=== PATIENT | male | born 1955 | race Caucasian/White ===

== ENCOUNTER 2017-03-29 11:07 | Inpatient (IN) | payer OTHER ==
[~2017-03-29] VITALS: Ht 188 cm; Wt 99.4 kg
--- NOTE | 2017-03-29 12:07 | NUR ---
TO ROOM 11 FOR EVAL.
--- NOTE | 2017-03-29 12:07 | NUR ---
SEEN BY DR. JOES, PT HERE FOR PICC LINE FOR DX OSTEOMYELITIS OF TOE.
--- NOTE | 2017-03-29 12:11 | NUR ---
PT BIB SELF C/C RT TOE INFECTION STS X 1 MONTH STS HAS HAD SEVERAL F/U APPT INCLUDING MRI DR JOSE AT BEDSIDE TO DEBBIAL
--- NOTE | 2017-03-29 12:16 | NUR ---
DR RAJAN AT BEDSIDE TO JEMMA
--- NOTE | 2017-03-29 12:56 | NUR ---
SUSPENDER CUTTER AT BEDSIDE FOR BLOOD DRAW
[2017-03-29 13:00] LABS: BASOPHIL % 0.5 % (0-2); PLATELET COUNT 292 x10^3mcL (130-400); RED CELL DISTRIBUTION WIDTH 14.1 % (11.5-14.5)
--- NOTE | 2017-03-29 13:05 | NUR ---
XRAY AT BEDSIDE
--- NOTE | 2017-03-29 13:19 | NUR ---
PLEASE ENTER FULL NAMES OF RADIOLOGY SERVICES MANAGER/RN Patient data collected by (RADIOLOGY SERVICES MANAGER):BELLO MOON Assessment reviewed and completed by (RN):MARTIN BOUDREAUX
[2017-03-29 13:24] LABS: CALCIUM 8.9 mg/dL (8.5-10.1); CARBON DIOXIDE 30.2 mmol/L (21-32); CHLORIDE SERUM 106 mmol/L (98-107); CREATININE SERUM 1.2 mg/dL (0.7-1.3); GFR1 > 60 mL/min; GLUCOSE SERUM 88 mg/dL (74-106); POTASSIUM SERUM 4.3 mmol/L (3.5-5.1); SODIUM SERUM 142 mmol/L (136-145)
[2017-03-29 13:28] LABS: ALBUMIN 3.8 g/dL (3.4-5.0); ALKALINE PHOSPHATASE 60 U/L (46-116); ALT/SGPT 32 U/L (16-63); AST/SGOT 17 U/L (15-37); BILIRUBIN TOTAL 0.8 mg/dL (0.20-1.00); TOTAL PROTEIN, SERUM 6.9 g/dL (6.4-8.2)
--- NOTE | 2017-03-29 13:49 | NUR ---
PT ADMIT TO TELE ROOM 210B GAVE REPORT TO BRITTANY
[2017-03-29 14:42] VITALS: BP 127/79
--- NOTE | 2017-03-29 14:50 | NUR ---
RECEIVED PATIENT FROM ED VIA GUERNEY, PATIENT ALERT AND ORIENTED, TELE # 22 SR, IV ACCESS TO LAC WNL, NO C/O PAIN AT THIS TIME, ORIENTED PATIENT TO ROOM AND SURROUNDINGS, BED IN LOW POSITION, BED RAILS UP X 2, CALL LIGHT WITHIN REACH, WILL ENDORSE CARE TO PRIMARY NURSE BRITTANY BURR
--- NOTE | 2017-03-29 15:00 | NUR ---
PATIENT IS CURRENTLY RESTING IN BED. VITAL SIGNS STABLE. NO SIGNS OF ACUTE DISTRESS ARE PRESENT. ALL SAFETY MEASURES ARE IN PLACE. WILL CONTINUE TO MONITOR.
[2017-03-29 15:07] LABS: CHOLESTEROL/HDL RATIO 3.4; MAGNESIUM 1.7 mg/dL (1.8-2.4); PHOSPHOROUS 4.2 mg/dL (2.5-4.9)
[2017-03-29 15:10] LABS: T3 TOTAL 0.92 ng/mL
[2017-03-29 15:14] LABS: FREE T4 1.09 ng/dL (0.76-1.46); FREE THYROXINE INDEX 2.8 ug/dL (1.4-4.5); T4(THYROXINE) 7.3 ug/dL (4.7-13.3)
--- NOTE | 2017-03-29 17:00 | NUR ---
DR WOODARD DISCUSSED WITH THE PATIENT REGARDING RISKS AND BENEFITS FOR AMPUTATION OF RIGHT SECOND TOE. ALL PATIENT QUESTIONS WERE ANSWERED AT THIS TIME. PATIENT SIGNED THE SURGERY CONSENT FORM.
--- NOTE | 2017-03-29 19:16 | NUR ---
REPORT GIVEN TO [facility] NURSE. AT THIS TIME THE PATIENT IS SLEEPING IN BED. RESPIRATIONS ARE EVEN AND UNLABORED. PATIENT IS LIGHTLY SNORING. NO SIGNS OF ACUTE DISTRESS ARE PRESENT. IV IS INFUSING AT 150ML/HR. ALL SAFETY PRECAUTIONS IN PLACE.
--- NOTE | 2017-03-29 19:25 | NUR ---
RECEIVED PT IN BED RESTING QUIETLY. HE IS ALERT,ORIENTED X4. NO SOB ON RA. W/ DRESSING TO RT FOOT INTACT. PT DENIED HAVING PAIN. W/ IVF NS AT 150 CC/HR VIA LTAC. CALL LIGHT W/IN REACH.
[2017-03-29 21:06] VITALS: BP 138/81
[2017-03-29] MEDS ORDERED: TAMSULOSIN HYD0.4 M1 PO (21:18)
--- NOTE | 2017-03-30 05:44 | NUR ---
PT SLEPT THROUGH THE NIGHT. HE HAD NO C/O PAIN. ON NPO STATUS FOR SX THIS AM. CHLORHEXIDINE PRE-OP WASH DONE. IVF NS AT 150 CC/HR INFUSING VIA LTAC.
[2017-03-30 06:00] VITALS: BP 126/72
[2017-03-30 06:36] LABS: BASOPHIL % 0.5 % (0-2); PLATELET COUNT 278 x10^3mcL (130-400); RED CELL DISTRIBUTION WIDTH 14.1 % (11.5-14.5)
--- NOTE | 2017-03-30 06:40 | NUR ---
QUICK SKETCH ARTIST AT BEDSIDE AND TALKING TO PT.
[2017-03-30 06:50] LABS: CALCIUM 8.7 mg/dL (8.5-10.1); CARBON DIOXIDE 30.2 mmol/L (21-32); CHLORIDE SERUM 106 mmol/L (98-107); CREATININE SERUM 1.1 mg/dL (0.7-1.3); GFR1 > 60 mL/min; GLUCOSE SERUM 113 mg/dL (74-106); POTASSIUM SERUM 4.2 mmol/L (3.5-5.1); SODIUM SERUM 141 mmol/L (136-145)
--- NOTE | 2017-03-30 06:50 | NUR ---
PT TAKEN DOWN TO OR VIA GUERNEY.
--- NOTE | 2017-03-30 07:01 | NUR ---
REPORT GIVEN TO OR NURSE OTERO.
[2017-03-30 07:02] LABS: microscopic required? NO
[2017-03-30 08:11] LABS: urine erythrocyte NEGATIVE (NEGATIVE)
[2017-03-30 09:40] VITALS: BP 138/78
--- NOTE | 2017-03-30 09:40 | NUR ---
RECEIVED THE PATIENT FROM RECOVERY ROOM S/P RIGHT 2ND TOE PARTIAL AMPUTATION. THE PATIENT AWAKE AND ORIENTED TO PERSON, PLACE AND TIME. DENIED ANY SHORTNESS OF BREATH, PAIN OR NAUSEA/VOMITING. RIGHT 2ND TOE AND FOOT NOTED WITH DRESSING INTACT. POST OP BOOT IN PLACE. RLE WAS ELEVATED ON A PILLOW. PULSES PALPABLE. TELE # 22 READS SINUS KAVITAS. RECONNECTED THE IV SITE TO THE LINE. VS CHECKED. CALL LIGHT WITHIN REACH. SIDE RAILS UP X3. ASSESSMENT WAS IMPLEMENTED. THE WAS AT BEDSIDE.
[2017-03-30] MEDS ORDERED: LEVAQUIN750 MG PO (11:51)
[2017-03-30] MEDS ORDERED: COLACE100 MG PO (11:52)
[2017-03-30] MEDS ORDERED: NOR10T PO (11:53)
[2017-03-30] MEDS ORDERED: ACIDOPHILUS LA1 EACH PO ×2 (11:54→14:13)
[2017-03-30 12:14] VITALS: BP 138/78
[2017-03-30] MEDS ORDERED: BACTRIM DS1 TAB PO (13:11)
[2017-03-30 13:56] VITALS: BP 114/69
--- NOTE | 2017-03-30 14:30 | NUR ---
THE PATIENT VOIDED S/P RIGHT 2ND TOE PARTIAL AMPUTATION. THE PATIENT TOLERATED WITH CCHO DIET (40% OF THE LUNCH TRAY AND 1 SANDWICH AND 1 DIET SODA); DENIED ANY NAUSEA/VOMITING. DISCHARGE INSTRUCTION AND PRESCRIPTION WERE EXPLAINED THOROUGHLY AND HANDED TO THE PATIENT. ALL CONCERNS WERE ADDRESSED AND THE PATIENT VERBALIZED UNDERSTANDING. H/L WAS REMOVED WITH CATH INTACT. TELE AND ID BANDS WERE REMOVED. THE NEW DRESSING TO RIGHT 2ND TOE AND FOOT INTACT. PER DR. POST-RESIDENT, THE DRESSING SHOULD NOT BE REMOVED TODAY. INSTRUCTED THE PATIENT TO KEEP THE DRESSING CLEAN AND INTACT UNTIL SEEING THE DOCTORS FOR FURTHER ADVICE AND EVALUATION.
--- NOTE | 2017-03-30 14:53 | NUR ---
THE PATIENT WAS TAKEN TO THE DISCHARGE OFFICE VIA WHEELCHAIR IN STABLE CONDITION. THE PATIENT WAS WEARING POST OP SHOE ON HIS RIGHT FOOT. ALL BELONGINS WERE SENT HOME UPON DISCHARGE.
== END 2017-03-30 14:53 | disposition home or self-care (01) | DRG 41 ==
LOC: ED 11:07 → DU 13:05
PROVIDERS: Emergency Medicine; Podiatrist; ADMIT Family Medicine
PROC: 0Y6R0Z1 Detachment at Right 2nd Toe, High, Open Approach (ICD-10-PCS; principal; 2017-03-30 07:30)
DX: E11.42 Type 2 diabetes mellitus with diabetic polyneuropathy (principal); M86.171 Other acute osteomyelitis, right ankle and foot; D68.51 Activated protein C resistance; E11.65 Type 2 diabetes mellitus with hyperglycemia; E11.69 Type 2 diabetes mellitus with other specified complication; E83.42 Hypomagnesemia; B35.1 Tinea unguium; Z79.84 Long term (current) use of oral hypoglycemic drugs; Z68.28 Body mass index [BMI] 28.0-28.9, adult; Z98.1 Arthrodesis status
CPT/HCPCS: 83880; 84439; J1956; J2704; J3010; J3370; J3490; J7030; Q0092

== ENCOUNTER 2018-11-19 16:20 | Inpatient (IN) | payer OTHER ==
[~2018-11-19] VITALS: Ht 188 cm; Wt 99.8 kg
[~2018-11-19 16:20] MED LIST: ACIDOPHILUS LA1 EACH PO; BACTRIM DS1 TAB PO; COLACE100 MG PO; LEVAQUIN750 MG PO; NOR10T PO; TAMSULOSIN HYD0.4 M1 PO
[2018-11-19] MEDS ORDERED: LIPITOR80 MG PO (17:39)
[2018-11-19] MEDS ORDERED: METFORMIN HCL1000 MG PO (17:39)
[2018-11-19] MEDS ORDERED: ASPIRIN ADULT L81 M3 PO (17:39)
[2018-11-19 18:36] LABS: BASOPHIL % 0.1 % (0-2); PLATELET COUNT 214 x10^3mcL (130-400); RED CELL DISTRIBUTION WIDTH 13.7 % (11.5-14.5)
[2018-11-19 18:45] LABS: CALCIUM 9.1 mg/dL (8.5-10.1); CARBON DIOXIDE 26.2 mmol/L (21-32); CHLORIDE SERUM 103 mmol/L (98-107); CREATININE SERUM 1.2 mg/dL (0.7-1.3); GFR1 > 60 mL/min; GLUCOSE SERUM 130 mg/dL (74-106); POTASSIUM SERUM 4.2 mmol/L (3.5-5.1); SODIUM SERUM 141 mmol/L (136-145)
[2018-11-19 18:50] LABS: ALBUMIN 4.1 g/dL (3.4-5.0); ALKALINE PHOSPHATASE 65 U/L (46-116); ALT/SGPT 37 U/L (16-63); AST/SGOT 20 U/L (15-37); BILIRUBIN TOTAL 1.6 mg/dL (0.20-1.00); TOTAL PROTEIN, SERUM 7.9 g/dL (6.4-8.2)
[2018-11-19 18:55] LABS: CHOLESTEROL/HDL RATIO 2.9
[2018-11-19 21:41] LABS: MAGNESIUM 1.8 mg/dL (1.8-2.4); PHOSPHOROUS 3.4 mg/dL (2.5-4.9)
[2018-11-19 21:47] LABS: T3 TOTAL 0.92 ng/mL
[2018-11-19 21:51] LABS: FREE T4 1.1 ng/dL (0.76-1.46); FREE THYROXINE INDEX 2.1 ug/dL (1.4-4.5)
[2018-11-19 22:00] VITALS: BP 145/77
[2018-11-19 22:06] VITALS: Ht 188 cm; Wt 99.8 kg
[2018-11-20 06:09] VITALS: BP 116/69
[2018-11-20 06:22] LABS: BASOPHIL % 0.3 % (0-2); PLATELET COUNT 229 x10^3mcL (130-400); RED CELL DISTRIBUTION WIDTH 14.1 % (11.5-14.5)
[2018-11-20 06:48] LABS: CALCIUM 8.9 mg/dL (8.5-10.1); CARBON DIOXIDE 27.3 mmol/L (21-32); CHLORIDE SERUM 105 mmol/L (98-107); CREATININE SERUM 1.2 mg/dL (0.7-1.3); GFR1 > 60 mL/min; GLUCOSE SERUM 137 mg/dL (74-106); POTASSIUM SERUM 4.3 mmol/L (3.5-5.1); SODIUM SERUM 143 mmol/L (136-145)
[2018-11-20 08:46] VITALS: BP 113/78
[2018-11-20 11:50] VITALS: BP 118/72
[2018-11-20 16:59] VITALS: BP 113/74
[2018-11-20 20:37] VITALS: BP 111/65
[2018-11-21 05:37] VITALS: BP 111/61
[2018-11-21 06:26] LABS: BASOPHIL % 0.3 % (0-2); PLATELET COUNT 250 x10^3mcL (130-400); RED CELL DISTRIBUTION WIDTH 13.6 % (11.5-14.5)
[2018-11-21 06:52] LABS: CALCIUM 9.2 mg/dL (8.5-10.1); CARBON DIOXIDE 27.3 mmol/L (21-32); CREATININE SERUM 1.3 mg/dL (0.7-1.3); POTASSIUM SERUM 4.7 mmol/L (3.5-5.1)
[2018-11-21 10:09] VITALS: BP 110/64
[2018-11-21 16:00] VITALS: BP 96/59
[2018-11-21 21:32] VITALS: BP 121/77
[2018-11-22 05:44] VITALS: BP 108/63
[2018-11-22 06:14] LABS: BASOPHIL % 0.7 % (0-2); PLATELET COUNT 283 x10^3mcL (130-400); RED CELL DISTRIBUTION WIDTH 14.3 % (11.5-14.5)
[2018-11-22 06:29] LABS: CARBON DIOXIDE 26.7 mmol/L (21-32); CHLORIDE SERUM 103 mmol/L (98-107); CREATININE SERUM 1.1 mg/dL (0.7-1.3); GFR1 > 60 mL/min; GLUCOSE SERUM 115 mg/dL (74-106); POTASSIUM SERUM 4.1 mmol/L (3.5-5.1); SODIUM SERUM 140 mmol/L (136-145)
[2018-11-22 10:00] VITALS: BP 114/67
[2018-11-22 17:26] VITALS: BP 120/95
[2018-11-22 20:43] VITALS: BP 127/83
[2018-11-23 05:42] VITALS: BP 137/52
[2018-11-23 07:02] VITALS: BP 116/71
[2018-11-23 07:53] LABS: BASOPHIL % 0.6 % (0-2); PLATELET COUNT 339 x10^3mcL (130-400); RED CELL DISTRIBUTION WIDTH 12.9 % (11.5-14.5)
[2018-11-23 08:30] LABS: CALCIUM 9.5 mg/dL (8.5-10.1); CARBON DIOXIDE 29.4 mmol/L (21-32); CREATININE SERUM 1.3 mg/dL (0.7-1.3); POTASSIUM SERUM 4.7 mmol/L (3.5-5.1)
[2018-11-23] MEDS ORDERED: KEFLEX500 M1 PO (08:49)
[2018-11-23 09:02] VITALS: BP 116/71
== END 2018-11-23 11:40 | disposition home or self-care (01) | DRG 617 ==
LOC: ED 16:20 → MU 20:16
PROVIDERS: Emergency Medicine; Internal Medicine; Podiatrist Foot & Ankle Surgery; ADMIT General Practice
PROC: 0Y6R0Z0 Detachment at Right 2nd Toe, Complete, Open Approach (ICD-10-PCS; principal; 2018-11-22 11:00)
DX: E11.69 Type 2 diabetes mellitus with other specified complication (principal); E87.2 Acidosis; L97.518 Non-pressure chronic ulcer of other part of right foot with other specified severity; M86.8X7 Other osteomyelitis, ankle and foot; E11.621 Type 2 diabetes mellitus with foot ulcer; L03.031 Cellulitis of right toe; E78.00 Pure hypercholesterolemia, unspecified; N40.0 Benign prostatic hyperplasia without lower urinary tract symptoms; E11.65 Type 2 diabetes mellitus with hyperglycemia; R74.0 Nonspecific elevation of levels of transaminase and lactic acid dehydrogenase [LDH]; E11.40 Type 2 diabetes mellitus with diabetic neuropathy, unspecified; Z88.0 Allergy status to penicillin; Z91.041 Radiographic dye allergy status; Z89.421 Acquired absence of other right toe(s); Z82.49 Family history of ischemic heart disease and other diseases of the circulatory system; Z83.3 Family history of diabetes mellitus
CPT/HCPCS: 82962; 84439; J2270; J2405; J3370; J3490; J7030; J7040; Q0092